=== PATIENT | female | born 1945 | race Caucasian/White ===

== ENCOUNTER 2016-08-10 13:52 | Outpatient (CLI) | payer OTHER ==
[2016-10-11] MEDS ORDERED: CALCIUM CARBON500 MG PO (12:50)
[2016-10-11] MEDS ORDERED: VITAMIN D-31000 UNIT PO (12:50)
[2016-10-11] MEDS ORDERED: ASPIRIN ADULT L81 M1 PO (12:51)
[2016-10-11] MEDS ORDERED: LISINOPRIL10 MG PO (12:51)
[2016-10-11] MEDS ORDERED: LIPITOR80 MG PO (12:53)
[2016-10-11] MEDS ORDERED: VITAMIN C500 M1 PO (12:53)
[2016-10-11] MEDS ORDERED: BISOPROLOL FUMAR5 MG PO (12:53)
[2016-10-11] MEDS ORDERED: AMLODIPINE BESYL5 MG PO (13:22)
[2016-10-11] MEDS ORDERED: ISOSORBIDE MONO60 MG PO (13:23)
[2016-10-11] MEDS ORDERED: CALCIUM 600 PO (13:25)
== END 2016-08-10 23:00 ==
LOC: LAB SRH 13:52
DX: I10 Essential (primary) hypertension (principal); E78.00 Pure hypercholesterolemia, unspecified; R19.09 Other intra-abdominal and pelvic swelling, mass and lump; I25.10 Atherosclerotic heart disease of native coronary artery without angina pectoris
CPT/HCPCS: 90047; 90074

== ENCOUNTER 2016-08-13 08:19 | Outpatient (CLI) | payer OTHER ==
--- NOTE | 2016-08-13 13:59 | DIAGNOSTIC IMAGING REPORT ---
PROCEDURE: MR LOWER EXT NONJOINT W/WO-LT INDICATION: PREVIOUS SURGERY ON POSTERIOR TIBIAL TENDON TECHNIQUE: Sagittal, axial, coronal, and axial oblique T1 and STIR sequences obtained through the foot. COMPARISON: 06/23/2014 FINDINGS: Osseous structures and articular surfaces: There is fluid in the calcaneal sulcus which then extends into the calcaneus resulting in a small intraosseous geode. There has been mild increase in patchy ill-defined high-signal within the calcaneus surrounding this geode. Minor dorsal spurring and a talonavicular joint space loss, chronic. No changes in marrow signal. Trace fluid dorsally at the talonavicular articulation, slightly decreased compared to prior. Ligaments: Ligaments of the ankle appear intact. Edema of the deltoid no longer seen. Tendons: About 3 cm distal to the medial malleolus, posterior tibial tendon becomes severely attenuated and fragmented. There is moderately expansile, heterogeneous, intermediate low-density signal in the expected tendon location to its attachment on the navicular. There is no focal intrinsic fluid signal. No significant adjacent edema. Trace fluid surrounding the tendon immediately distal to the medial malleolus, similar compared to the previous study. The distal retinacular fibers appear thickened and mildly heterogeneous. Anterior, lateral, and Achilles tendons appear normal. Soft tissues: No new focal edema. Plantar fascia, sinus tarsi, muscular bulk and, and subcutaneous tissues remain normal. IMPRESSION: 1. Expansile morphology, heterogeneous signal, and attenuation of the repaired posterior tibial tendon. This is suspicious for chronic repair failure with granulation tissue present. No acute discontinuity. Correlate with ultrasound findings. 2. Trace fluid in the posterior tibial tendon sheath, similar compared to the prior study but without other findings to suggest stenosing tenosynovitis. 3. Progression of intraosseous geode in the calcaneus, now with mild surrounding osseous edema. Correlate clinically.
[2016-10-11] MEDS ORDERED: CALCIUM CARBON500 MG PO (12:50)
[2016-10-11] MEDS ORDERED: VITAMIN D-31000 UNIT PO (12:50)
[2016-10-11] MEDS ORDERED: LISINOPRIL10 MG PO (12:51)
[2016-10-11] MEDS ORDERED: ASPIRIN ADULT L81 M1 PO (12:51)
[2016-10-11] MEDS ORDERED: LIPITOR80 MG PO (12:53)
[2016-10-11] MEDS ORDERED: VITAMIN C500 M1 PO (12:53)
[2016-10-11] MEDS ORDERED: BISOPROLOL FUMAR5 MG PO (12:53)
[2016-10-11] MEDS ORDERED: AMLODIPINE BESYL5 MG PO (13:22)
[2016-10-11] MEDS ORDERED: ISOSORBIDE MONO60 MG PO (13:23)
[2016-10-11] MEDS ORDERED: CALCIUM 600 PO (13:25)
== END 2016-08-13 23:00 ==
LOC: MRI SRH 08:19
DX: M66.872 Spontaneous rupture of other tendons, left ankle and foot (principal); R60.9 Edema, unspecified

== ENCOUNTER 2016-10-12 09:44 | Day surgery (SDC) | payer OTHER ==
--- NOTE | 2016-10-11 19:19 | HISTORY AND PHYSICAL ---
ADMITTED: 10/12/2016 HISTORY OF PRESENT ILLNESS: The patient is a 70-year-old female who still has residual pain in her left foot. I carried out a repair of her posterior tibial tendon on 08/06/2014. States she was doing fine for quite some time and then got more painful. Carried out a repeat MRI, which revealed additional pathology in the posterior tibial tendon, as well as some bone marrow edema. She has elected to proceed with surgical intervention. MEDICAL/SURGICAL HISTORY: Past medical history: Includes a history of stress disorder, hypertension, elevated cholesterol. Surgical history: She had a right foot operated on in 08/2008, her left foot by myself in 2014, appendectomy and tonsils. PRIMARY CARE PROVIDER: Dr. Mooney. MEDICATIONS: 1. Amlodipine besylate 2.5 mg tablet 1 by mouth daily. 2. Atorvastatin 40 mg tablet 1 by mouth daily. 3. Isopropyl fumarate 5 mg tablet 1 by mouth daily. 4. Clopidogrel 75 mg tablet 1 by mouth daily. 5. Isosorbide mononitrate ER 30 mg tablet 1 by mouth daily. 6. Lisinopril 10 mg 1 by mouth daily. 7. Nitrostat 0.4 mg tablet sublingual 8. Topical Voltaren as needed. ALLERGIES: 1. CIPROFLOXACIN. 2. CORTISONE. SOCIAL HISTORY: She is , does not smoke nor drink. FAMILY HISTORY: Colon cancer. REVIEW OF SYSTEMS: Ten-point review of systems noncontributory to chief complaint. PHYSICAL EXAMINATION: GENERAL: The patient is alert and oriented x3. HEENT: PERRLA. Normocephalic. Pupils equal, round, reactive to light and accommodation. LUNGS: Clear to auscultation. No wheezing, rhonchi, or rales. No labored respirations. HEART: Regular rate and rhythm. Regular S1 and S2. No murmurs, clicks, rubs, or gallops. ABDOMEN: Soft, tender, nondistended. No masses. EXTREMITIES: Lower extremity/Vascular: DP and PT pulses are palpable. Subpapillary venous plexus capillary refill within normal limits. Texture and turgor within normal limits. Orthopedically, there is pain along the course of posterior tibial tendon and significant attenuation and swelling. Stance reveals a valgus rotation to the heel. LAB/IMAGING: Imaging and MRI findings previously discussed with a pathology within the posterior tibial tendon. IMPRESSION: 1. Recalcitrant posterior tibial tendon dysfunction, stage 3. 2. Calcaneal valgus. PLAN: The patient has scheduled for a flexor tendon transfer to the left calcaneal osteotomy with rigid internal fixation, a harvesting of bone graft, as well as a talonavicular arthrodesis. There are no contraindications to surgery at this time. Surgery is scheduled at [facility] on 10/12/2016.
[~2016-10-12] VITALS: Ht 172.7 cm; Wt 69.0 kg
[2016-10-12] VITALS (9 sets, daily range): BP systolic 124–130; BP diastolic 49–60
[~2016-10-12 09:44] MED LIST: AMLODIPINE BESYL5 MG PO; ASPIRIN ADULT L81 M1 PO; BISOPROLOL FUMAR5 MG PO; CALCIUM 600 PO; CALCIUM CARBON500 MG PO; ISOSORBIDE MONO60 MG PO; LIPITOR80 MG PO; LISINOPRIL10 MG PO; VITAMIN C500 M1 PO; VITAMIN D-31000 UNIT PO
[2016-10-12] MEDS ORDERED: PERCOCET1 TA4 PO (16:00)
[2016-10-12] MEDS ORDERED: ZOFRAN4 MG PO (16:00)
--- NOTE | 2016-10-12 16:02 | Provider's Discharge Care Plan ---
Problem, Goal, Plan Problem List 1. Congenital pes planus, left foot Goals: Improve function Instructions: Follow up as directed
--- NOTE | 2016-10-12 16:02 | Provider's Discharge Care Plan ---
Problem, Goal, Plan Problem List 1. Congenital pes planus, left foot Goals: Improve function Instructions: Follow up as directed
--- NOTE | 2016-10-12 16:39 | DIAGNOSTIC IMAGING REPORT ---
PROCEDURE: XR FOOT 3 VIEWS - LEFT INDICATION: POST-OP- IN PACU TECHNIQUE: Three views. COMPARISON: MRI the foot dated 08/13/1969 FINDINGS: This been a talonavicular fusion with a screw and two side plates. Two screws are across a calcaneal osteotomy. Anatomic alignment. IMPRESSION: 1. Talonavicular fusion and calcaneal osteotomy.
--- NOTE | 2016-10-12 20:33 | OPERATIVE REPORT ---
DATE OF SURGERY: 10/12/2016 SURGEON: Nolan Lopez DPM PREOPERATIVE DIAGNOSES: 1. Adult acquired flat foot 2. Diseased posterior tibial tendon, stage III POSTOPERATIVE DIAGNOSES: 1. Adult acquired flat foot 2. Diseased posterior tibial tendon, stage III PROCEDURE PERFORMED: 1. Calcaneal osteotomy with internal fixation 2. Flexor tendon transfer 3. Talonavicular arthrodesis MATERIALS: 3-0 and 4-0 Polysorb, 4-0 Surgipro, two 6.7 cannulated compression screws, one 60 mm in length, the other at 55 mm in length. One 4.5 cannulated compression screw 45 mm in length and two 15 x 15 mm jaida, 2.5 mL of DBM bone putty, one 4.75 SwiveLock and #2 FiberTape. INJECTABLES: Injected 20 mL of 0.5% bupivacaine plain. COMPLICATIONS: None. CONDITION: The patient tolerated anesthesia, procedure well. INDICATIONS: The patient is a 71-year-old female whom I successfully attempted to do a soft tissue procedure in 2014 to repair the posterior tibial tendon and wrap it with an amnion chorionic graft. The repair lasted approximately 2 years. A repeat MRI revealed an ongoing chronic disease of the tendon and rupture. It is felt that at a stage III diseased tendon that a flexor tendon transfer, a calcaneal osteotomy and an arthrodesis would be indicated. She is on board with the planned procedure. There are no contraindications to surgery at this time. SURGICAL TECHNIQUE: The patient was brought to the operating room, placed on operating room table in a supine position. General anesthetic was administered. Pneumatic tourniquet was then placed above the left knee at mid-thigh level. Left lower extremity was then prepped and draped in the normal sterile fashion. An intraoperative pause was carried out for positive identification, proper limb, consent form verified and confirmed. An Esmarch bandage was utilized to exsanguinate the limb, tourniquet was then inflated. Attention was then directed to procedure #1. Calcaneal osteotomy with internal fixation: At this time, attention was directed to the posterior lateral aspect of the os calcis where a 4 cm curvilinear incision was made anterior to the tendo-Achilles and oriented slightly oblique at about 30 degrees and anterior to the plantar fascial insertion and posterior to the peroneal tubercle. Periosteal elevators were the utilized. Exposure was created and held with a Homans. A sagittal saw was then utilized to carry out an osteotomy oriented through-and- through, capital fragment was then dislodged finally with osteotome and mallet. A smooth laminar dehairing machine tender was then utilized to finalize the medial cortex and completing release. The capital fragment was then translocated approximately 7 mm. It was then temporarily fixated in oblique fashion with the K-wire, preventing any dorsal subtranslation. Standard AO techniques were carried out and the os calcis was permanently fixated with the aforementioned 6.7 screws entering from posterior to anterior. A good compression was noted. The area was flushed. The lateral shelf was then excised. A bone harvesting instrumentation was then utilized to harvest bone graft from the anterior portion of the os calcis and then backfilled with approximately 1 mL of DBM bone putty. The area was flushed. The capsule and periosteum were then reapproximated with 3-0 Polysorb, subcutaneous with 4-0 and skin edges were then reapproximated in a running fashion with 4-0 Surgipro. Attention was then directed to procedure #2. Talonavicular arthrodesis: A curvilinear incision was made from the posterior aspect of the medial malleolus then coursing inferiorly and anteriorly towards the talonavicular joint. The periosteum was excised and reflected back. A tarsal distractor was then placed. The articulating surface of the head of the talus and the articulating surface of the navicular were then curetted and then fish-scaled accordingly with osteotomes. Fenestrated with a Steinmann pin. The area was flushed. The foot was then placed in the desired position and a guidewire was then placed in slightly plantar medial and aiming laterally towards the talar neck. Verified under fluoroscopy for proper placement. Prior to final application, the remaining portion of the DBM bone putty mixed with the bone graft was then placed. Then the screw insertion was carried out with compression noted. Additional compression was achieved with two 15 x 15 jaida going from anterior and working its way laterally getting good stable compression across the entirety of the joint. Attention was directed to procedure #3. Flexor tendon transfer: The posterior tibial tendon sheath was incised. It was noted to be significantly attenuated and diseased at its insertion point, it was released and that section of tendon was then passed off to forceps to formalin for analysis. The tunnel of the flexor digitorum longus tendon was identified and freed proximally, posterior to the medial malleolus and then inferior as it dove into the mid portion of the foot. It was transected at this point. A guidewire was then driven on the anterior medial aspect just missing the 4.5 compression screw tapped accordingly. The flexor tendon was then whipstitched. It was grabbed and the 2-0 stitch was then captured with the fiber loop and then advanced from plantar to dorsal placing the flexor digitorum longus tendon into the new portal replacing the diseased posterior tibial tendon. Tourniquet was released at 120 minutes. The dissection was further carried out without tourniquet then reinflated at approximately 30 minutes after. A tenodesis screw was then placed from dorsal to plantar. It seemed to be stable, at this point. The PT tendon was then anastomosed with the flexor digitorum longus tendon just inferior to the medial malleolus and then inverting the foot. The tenodesis screw popped inferiorly. The flexor digitorum longus tendon was then rewhipstitched. A larger 4.75 tenodesis screw was then placed with the tendon firmly held in place. The area was additionally flushed. The paratenon was repaired with 3-0 Polysorb and the periosteum was reapproximated with 3-0 Polysorb as well. Area was additionally flushed. The subcutaneous was reapproximated with 4-0 Polysorb and skin edges reapproximated with 4-0 Surgipro. The incisions posteriorly allowed the screws to enter the calcaneus were then reapproximated with 4-0 Surgipro as well. Tourniquet was finally released with a total of 198 minutes with a breathing period of 30 minutes in between reinflation time. The area was locally anesthetized with the aforementioned local anesthetic. Placed in a light compressive dressing, as well as a prefabricated Ortho-Glass splint posteriorly with the foot held in a neutral position. The patient tolerated anesthesia, procedure well and left OR with vital signs stable. While in recovery, written instructions for absolutely nonweightbearing. Postoperative x- rays evaluated in PACU for excellent alignment and hardware in excellent position. Prognosis is guarded. She will be discharged home in stable condition.
== END 2016-10-12 21:15 | disposition home or self-care (01) ==
LOC: OR SRH 09:44 → SCU SRH 09:46 → OR SRH 11:30
PROVIDERS: Podiatrist
PROC: 0SGJ0KZ Fusion of Left Tarsal Joint with Nonautologous Tissue Substitute, Open Approach (ICD-10-PCS; principal; 2016-10-12 11:30)
PROC: 0LXW0ZZ Transfer Left Foot Tendon, Open Approach (ICD-10-PCS; principal; 2016-10-12 11:30)
PROC: 0QSM04Z Reposition Left Tarsal with Internal Fixation Device, Open Approach (ICD-10-PCS; principal; 2016-10-12 11:30)
PROC: 0SGJ04Z Fusion of Left Tarsal Joint with Internal Fixation Device, Open Approach (ICD-10-PCS; principal; 2016-10-12 11:30)
DX: M21.42 Flat foot [pes planus] (acquired), left foot (principal); M76.822 Posterior tibial tendinitis, left leg; M67.874 Other specified disorders of tendon, left ankle and foot; I10 Essential (primary) hypertension